=== PATIENT | female | born 1955 | race Caucasian/White ===

== ENCOUNTER 2017-12-27 07:00 | Inpatient (IN) | payer OTHER ==
[~2017-12-27] VITALS: Ht 157.5 cm; Wt 66.2 kg
[2018-01-05] MEDS ORDERED: VITAMIN C500 M8 PO (13:07)
[2018-01-05] MEDS ORDERED: TRAZODONE HCL50 M1 PO (13:11)
--- NOTE | 2018-01-17 11:02 | Operative Report ---
Operative/Inv Procedure Report Surgery Date: 01/17/18 Name of Procedure: #1 left breast reconstruction with dermato cutaneous flap #2 left breast reconstruction with micro-fat grafting #3 right breast reduction #4 left nipple reconstruction Pre-Operative Diagnosis: #1 recurrent left breast cancer #2 late effect radiation with skin and breast changes left breast #3 right breast hypertrophy and asymmetry #4 acquired absence left breast Post-Operative Diagnosis: Same Estimated Blood Loss: less than 50ml Surgeon/Placement Specialist: Terrence Barber M.D. Anesthesia: general endotracheal tube Implants: None Drains: Left breast Adi-Pulido drain, 10 mm Specimens: Right breast tissue Microbiology: None Tourniquet: None Complications: None Condition: Stable Operative Indication: This patient presents with recurrent left breast cancer. She is status post left lumpectomy and radiation in the past. 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 She was diagnosed with recurrent left breast cancer and requires mastectomy. Patient declined reconstruction with flaps ( YAEL, TRAM, latissimus flap), and she declined reconstruction with implants. The patient was going to choose no reconstruction and was offered reconstruction with a left breast Goldilocks mastectomy, with dermatocutaneous cutaneous flap and fat graft reconstruction. In addition she would require right breast reduction for symmetry. Patient was told that due to her prior left breast radiation it was not clear that I would be able to complete her left breast reconstruction utilizing fat grafts. Fat would be harvested from the right hip initially, to preserve the abdomen as a potential donor site for an abdominal flap. Patient understands that she will require between 2-4 outpatient fat graft sessions to complete the rest left breast reconstruction if it will work. We would know after the first outpatient fat graft session in 3 months from now, if this technique will work for her. If not she is prepared to wear an external breast prosthesis for symmetry. He discussed right breast reduction for symmetry as well. Risks discussion with this patient preoperatively included but was not limited to the risk of infection bleeding poor scar formation, contour irregularity, calcification, fibrosis, and fat necrosis, any of which might require additional imaging and her biopsy. Further we discussed breast reduction in detail. Risks discussion regarding the breast reduction included but was not limited to the risk of infection, bleeding, poor scar formation, nipple sensory change or loss, and loss of the nipple. She was allowed us questions or questions were answered she requested we proceed with a left breast Goldilocks mastectomy, with dramatic cutaneous flaps and fat graft, and right breast reduction. Operative/Procedure Note Note: With the patient on the OR table in the supine position under adequate general anesthesia the breasts and abdomen and hips were prepped with chlorhexidine and the breasts were secondarily prepped with Betadine and she was draped in the usual sterile fashion. A 2 team approach was used. While Delma Marin MD was performing the left mastectomy Dr. Barber performed the right breast reduction. Both breasts were marked for a Alvarado pattern breast reduction and Goldilocks mastectomy. The left inferior Alvarado pattern was de-epithelialized sharply with 10 scalpel blade prior to initiating the left mastectomy. Delma Marin MD then completed the left mastectomy area. On the right side, the inferior pedicle width was set at 7 cm, and it was de-epithelialized with 15 scalpel blade. A new areolar diameter was set at 42 mm. The inferior pedicle was dissected free with Bovie cautery. Redundant skin and breast tissue was resected with 10 scalpel blade and Bovie cautery. Specimens were labeled as they were resected. The superior flap was then elevated just superficial to the pectoralis fascia in a superior direction. Dissection continued 2. measuring 5 cm inferior to the clavicle. The superior flap was then thinned uniformly to a thickness measuring 3 cm. Hemostasis was obtained with patient's blood pressure in the normotensive range. The pocket was irrigated with saline solution and hemostasis was obtained with 3-0 Vicryl ties and Bovie cautery was required. A 3-0 Vicryl three-cornered tacking stitch was placed followed by skin clips along the vertical limb and the inframammary incision. A new opening for the areola was marked measuring 4 cm superior to the inframammary fold. This marked the inferior aspect of the new areola. This doughnut of skin and subcutaneous tissue was resected with 15 scalpel blade and Bovie cautery. This was obtained with Bovie cautery. The nipple areolar complex was delivered through this opening, attached to its inferior pedicle, and inset with interrupted deep inverted 4-0 Vicryl subdermal sutures. A running 4-0 Monocryl subcuticular stitch was then placed circumferentially around the areola. The vertical limb was approximated with deep inverted 4-0 Vicryl subdermal sutures and a running 4 Monocryl subcutaneous stitch. The inframammary incision was closed with a running absorbable 4-0 VLOC suture. Finally the inframammary fold was closed with a running 4 Monocryl subcutaneous stitch. A 3 mm right hip incision was then made with 15 scalpel blade. 200 mL of tumescent solution was infused into the right hip. Tumescent solution consisted of 1000 mL of normal saline, mixed with 50 mL of 1% Xylocaine plain, and 1 mL of epinephrine 1:1000. Utilizing a 4 mm tri-port cannula, with suction set at between 18 and 22 inches of mercury, and power set at 65%, fat was harvested from the right hip. A total of 100 mL was harvested from the right hip. The right hip incision was closed with a single deep inverted 4-0 Vicryl subdermal suture, interrupted 5-0 nylon sutures, Steri-Strip 2 x 2 gauze and sterile Band- Aid. The fat was allowed to separate for approximately 10 minutes, and the aqueous layer was drained away. The fat had been collected in a sterile [employer] disposable fat collection system. Once the aqueous layer was drained away fat was transferred into sterile 5 mL syringes. Utilizing a 14-gauge flat- tipped cannula micro fat grafting was performed to the left breasts. Approximately 100 mL total fat was grafted into the left subpectoral, and intrapectoral plane, as well as just deep to the serratus fascia and into the de -epithelialized subcutaneous dermal flap. A total of approximately 10 mL had been placed in the flap the de-epithelialized fat grafted flap was then folded over and sutured to the pectoralis major muscle to increase projection. The mastectomy skin flap was then draped over the dermato cutaneous flap and secured with a single 3-0 Vicryl subdermal three-cornered tacking stitch. The areolar reconstruction was then completed by realigning the areolar border which had been marked preserve approximately a 4 cm diameter areola at the time that I marked for the mastectomy incisions. The areola was reconstructed with deep inverted 4-0 Vicryl subdermal sutures and interrupted 5-0 nylon sutures. Skin clips were placed along the vertical limb and the inframammary incision. A 10 mm Adi-Pulido drain was brought out through the lateral aspect of the inframammary incision and secured with 3-0 nylon suture. This was performed after the wound was irrigated with saline and hemostasis was checked and obtained with Bovie cautery was required. The incisions were then closed in layers. The inframammary incision was closed with a running subdermal 4-0 absorbable V lock suture followed by running 4-0 Monocryl subcutaneous stitch. The vertical limb was closed with deep inverted 4-0 Vicryl sutures followed by running 4 Monocryl subcuticular stitch. The left breast drain was placed to bulb suction. Sterile dressings were applied consisting of Xeroform gauze to the incisions followed by 4 inch Kerlix fluff gauze followed by Kerlix roll fluff gauze followed by 5 x 9 pads and a postsurgical bra and 6 inch Albert wrap. Sponge and needle counts correct end of the case there were no complications.
--- NOTE | 2018-01-17 11:04 | RADIOLOGY REPORT ---
EXAMINATION:\H\ \N\XR CHEST CLINICAL INFORMATION: Miscount COMPARISON: 08/08/2016 TECHNIQUE: Frontal view of the chest was obtained. FINDINGS: The endotracheal tube terminates 3.5 cm above the tenzin. There is a surgical drain overlying the left mid chest. Foci of subcutaneous gas along the left chest wall and right axilla. No pneumothorax. No metallic foreign body. IMPRESSION: No foreign body to indicate a retained suture needle.
--- NOTE | 2018-01-17 11:13 | Operative Report ---
Operative/Inv Procedure Report Surgery Date: 01/17/18 Name of Procedure: Left mastectomy and sentinel lymph node biopsy Pre-Operative Diagnosis: Left breast invasive cancer, status post breast conserving therapy. Post-Operative Diagnosis: Same Estimated Blood Loss: 50ml to 100ml Surgeon/General Merchandise Manager: Delma Marin MD Anesthesia: general endotracheal tube Specimens: Right breast, long suture madrid previous lumpectomy, short suture marked lateral , sentinel lymph node Operative/Procedure Note Note: Patient status post treatment of left breast cancer with lumpectomy and radiation. She presents with a invasive cancer recurrence and presents for mastectomy. Preoperative lymphoscintigraphy performed and the films reviewed. She is brought to the operating room and given clindamycin for prophylaxis. Anesthesia was administered. Bilateral breasts, abdomen and axilla were prepped and draped in sterile fashion. The procedure was done jointly with Dr. Barber. Incisions were planned. The left breast was approached. The posterior flap was de-epithelialized using sharp dissection. Incisions were then made to encompass the nipple and portion of the areola in the mastectomy specimen. Skin flaps are created superiorly to the level of the clavicle, medially to the sternum, and laterally to the latissimus. Inferior skin flap was created to the superior border the rectus sheath. Breast was then removed from the pectoralis fashion. A long silk suture was placed at the prior lumpectomy incision in the medial breast. After the specimen was removed a short suture was placed laterally. The axilla was then explored. A hot lymph node was identified and excised as sentinel lymph node. No other hot, blue, or palpable lymph nodes were identified. It was stasis achieved using electrocautery. The remainder the procedure is dictated by Dr. Barber.
--- NOTE | 2018-01-17 11:23 | Patient Discharge Instructions ---
Discharge Instructions General Discharge Information You were seen/treated for: LEFT BREAST CANCER -MASTECTOMY BILATERAL MASTOPEXY FAT TRANSFER You had these procedures: BREAST RECONSTRUCTION FAT TRANSFER Watch for these problems: WOUND DRAINAGE EXCESSIVE DRAINAGE INTO MICHAEL-YING DRAIN FEVERS OR CHILLS REDNESS AND INCREASING PAIN SATURATED DRESSINGS INCREASING PAIN Call Surgeon to remove: Other, WOUND CHECK Do not soak the wound: No Daily wet to dry dressings: No No bath, but you may shower: No Other wound care: KEEP CLEAN AND DRY EMPTY DRAINS WHEN PARTIALLY FULL Special Instructions: NO HEAVY LIFTING, OVERHEAD ACTIVITIES, NO DRIVING, NO PUSHING OR PULLING Diet Continue normal diet: Yes Activity Full Activity/No Limits: No Acute Coronary Syndrome Inclusion Criteria At DC or during hospital stay patient has or had the following: ACS DIAGNOSIS No Discharge Core Measures Meds if any: Prescribed or Continued at Discharge Meds if any: NOT Prescribed or Continued at Discharge Congestive Heart Failure Inclusion Criteria At DC or during hospital stay patient has or had the following: CHF DIAGNOSIS No Discharge Core Measures Meds if any: Prescribed or Continued at Discharge Meds if any: NOT Prescribed or Continued at Discharge Cerebrovascular accident Inclusion Criteria At DC or during hospital stay patient has or had the following: CVA/TIA Diagnosis No Discharge Core Measures Meds if any: Prescribed or Continued at Discharge Meds if any: NOT Prescribed or Continued at Discharge Venous thromboembolism Inclusion Criteria VTE Diagnosis No VTE Type NONE VTE Confirmed by (Test) NONE Discharge Core Measures - Per Current guidelines, there needs to be overlap - treatment for the first 5 days of Warfarin therapy. - If discharged on Warfarin prior to 5 days of - overlap therapy, the patient will need to be - assessed for post discharge needs including - *Post discharge parental anticoagulation - *Warfarin and/or parental anticoagulation education - *Follow up date to check INR post discharge At least 5 days overlap therapy as Inpatient No Meds if any: Prescribed or Continued at Discharge Note: Overlap Therapy is Warfarin and Anticoagulant Meds if any: NOT Prescribed or Continued at Discharge
--- NOTE | 2018-01-17 11:24 | Admission Core Measures ---
Acute Coronary Syndrome (CM) ACS Core Measures Acute Coronary Syndrome Diagnosis No Congestive Heart Failure (NEW) CHF Core Measures Congestive Heart Failure Diagnosis No Cerebrovascular Accident CVA Core Measures CVA/TIA Diagnosis No Venous Thromboembolism VTE Core Tad (View Protocol) VTE Risk Factors Surgery No Mechanical VTE Prophylaxis d/t N/A MechProphylax Ordered No VTE Pharm Prophylaxis d/t NA PharmProphylax ordered Problem List As ranked by this Provider includes Assessment & Plan 1. Breast cancer HOME MEDS Home Med List Ascorbic Acid (Vitamin C) (Unknown Strength) TABLET (Unknown Dose) PO DAILY SUPPLEMENT (Reported)
--- NOTE | 2018-01-17 11:32 | Surg Short-stay <48hrs Dis Sum ---
Visit Information Visit Dates Admission Date: 01/17/18 Discharge Date: 01/18/18 Surgical Short Stay DC Summary Admission Diagnosis: LEFT BREAST CANCER Final Diagnosis: LEFT BREAST CANCER Procedure(s): LEFT BREAST GOLDI LOCKS MASTECTOMY WITH FAT TRANSFER WITH DRAIN PLACEMENT LEFT SENTINEL NODE BIOPSY RIGHT BREAST REDUCTION Summary/Significant Findings: 62 Y/O FEMALE DIAGNOSED WITH LEFT BREAST CANCER WAS TAKEN TO THE OR ON 01/17/18 FOR LEFT BREAST MASTECTOMY AND RECONSTRUCTION WITH FAT TRANSFER, SENTINEL NODE BIOSPY, AND RIGHT BREAST REDUCTION. SHE TOLARATED THE PROCEDURE WELL AND WAS DISCHARGED TO THE FLOOR WITHOUT COMPLICATION. On pod1 her dressing was changed by Dr Barber and Dr Marin. Her JAY drain was checked and output was recorded. THROUGHOUT HER HOSPITAL STAY HER VSS AND SHE WAS AFEBRILE. PAIN WAS CONTROLLED AND SHE TOLARATED POs AND VOIDED. SHE IS DISCHARGED IN STABLE CONDITION TO HOME WITH ALL DISCHARGE INSTRUCTIONS AND FOLLOW-UP APPOINTMENTS EXPLAINS Condition at Discharge: STABLE Discharge Disposition: home or self care Discharge instructions provided to patient/family: Yes Post discharge follow-up plan: STABLE Copies to: Tomas HUFF,Brittany Barber MD,Terrence Fowler
[2018-01-17 13:04] VITALS: BP 118/70
--- NOTE | 2018-01-17 15:22 | PN- General Surgery ---
Subjective Subjective: POST-OP NOTE Currently nauseous. Tolerating sips of gingerale. "I feel like I need to burp". Currently pain controlled. Out of bed to bathroom. Unable to void yet. No shortness of breath. No chest pains. Some dizziness when out of bed. Interested in talking to clinical case manager about VNA services. Her prescriptions were filled pre -operatively. Objective Vital Signs and I&Os Vital Signs Date Time Temp Pulse Resp B/P B/P Pulse O2 O2 Flow FiO2 Mean Ox Delivery Rate 01/17 1304 58 18 118/70 94 Room Air Intake & Output 01/17 1600 01/17 0800 01/17 0000 01/16 1600 01/16 0800 01/16 0000 Intake Total Output Total Balance Patient 146 lb Weight Weight Bed scale Measurement Method Physical Exam: General - alert & oriented x 3. comfortable. no acute distress. Lungs - clear bilaterally. no w/r/r. Cardiac - s1s2. reg. Chest - dressings c/d/i. left sided JAY drain with scant bloody drainage, to bulb suction. Abdomen - soft. nontender. Extremities - warm bilaterally. no c/c/e. calves soft and nontender b/l. athrombics placed. Current Medications: Current Medications Sig/Jassi Start time Last Medication Dose Route Stop Time Status Admin Acetaminophen 1,000 MG Q6H PRN 01/17 1100 AC N/A 1 UNIT IV Cefazolin Sodium 2,000 MG ONCE 01/17 0000 NR IV 01/17 2359 Clindamycin 300 MG IQ8 01/17 1600 UNVr Dextrose/Water 50 ML IV 01/18 1559 Dexmedetomidine HCl 200 MCG .STK-MED ONE 01/17 0716 DC IV 01/17 0717 Dextrose/Sodium 1,000 ML Q10H 01/17 1100 AC 01/17 Chloride IV 1254 Diphenhydramine HCl 25 MG Q4-6 PRN PRN 01/17 1515 AC IV Docusate Sodium 100 MG DAILY 01/18 0900 AC PO Fentanyl Citrate 200 MCG .STK-MED ONE 01/17 0715 DC IM 01/17 0716 Hydromorphone HCl 2 MG Q4P PRN 01/17 1115 AC PO Hydromorphone HCl 4 MG Q4P PRN 01/17 1115 AC PO Hydromorphone HCl 2 MG .STK-MED ONE 01/17 0715 DC IM 01/17 0716 Ketamine HCl 50 MG .STK-MED ONE 01/17 0715 DC IM 01/17 0716 Midazolam HCl 2 MG .STK-MED ONE 01/17 0716 DC IM 01/17 0717 Morphine Sulfate 10 MG Q3P PRN 01/17 1115 CAN IV Ondansetron HCl 4 MG Q6P PRN 01/17 1100 AC 01/17 IV 1259 Oxycodone HCl 5 MG Q6 PRN 01/17 1115 CAN PO Oxycodone HCl 10 MG Q6 PRN 01/17 1115 CAN PO Oxycodone/ 1 TAB Q4P PRN 01/17 1100 CAN Acetaminophen PO Oxycodone/ 2 TAB Q4P PRN 01/17 1100 CAN Acetaminophen PO Trimethobenzamide HCl 200 MG TID PRN 01/17 1530 AC IM Assessment/Plan Assessment/Plan This 62 year old female is POD#0 s/p left mastectomy and sentinel lymph node biopsy, left breast reconstruction with dermato cutaneous flap and micro-fat grafting with nipple reconstruction, and right breast reduction, for recurrent left breast cancer, late effect radiation with skin and breast changes left breast, right breast hypertrophy and asymmetry, and acquired absence left breast advance diet as tolerated pain control as ordered IST reviewed ALPS / oob - dvt ppx due to void by tonight clindamycin, to transition to oral antibiotics upon discharge to home monitor JAY drain. drain teaching and clinical case manager to assess ?need for VNA d/c home tomorrow will d/w and Core Measures Venous Thromboembolism VTE Risk Factors Surgery No Mechanical VTE Prophylaxis d/t N/A MechProphylax Ordered No VTE Pharm Prophylaxis d/t NA PharmProphylax ordered
[2018-01-17] MEDS ORDERED: VICODIN 5-3001 EACH PO (15:29)
[2018-01-17] MEDS ORDERED: ZOFRAN4 M2 PO (15:29)
[2018-01-17] MEDS ORDERED: CLINDAMYCIN HC300 M1 PO (15:29)
[2018-01-17] MEDS ORDERED: COLACE100 M1 PO (15:30)
[2018-01-17 19:50] VITALS: BP 100/62
[2018-01-18] VITALS: BP 100/50
[2018-01-18 06:19] VITALS: BP 91/55
--- NOTE | 2018-01-18 07:51 | PN- General Surgery ---
Subjective Subjective: Had some nausea overnight. Feels better this morning. No pain Objective Vital Signs and I&Os Vital Signs Date Time Temp Pulse Resp B/P B/P Pulse O2 O2 Flow FiO2 Mean Ox Delivery Rate 01/18 0619 97.8 66 20 91/55 100 Room Air 01/18 0000 98.2 60 18 100/50 99 Room Air 01/17 1950 97.8 52 20 100/62 98 01/17 1304 58 18 118/70 94 Room Air Intake & Output 01/18 0801/18 0000 01/17 1600 01/17 0800 01/17 0000 01/16 1600 Intake Total 1140 420 Output Total 1335 300 Balance -195 120 Intake, IV 900 300 Intake, Oral 240 120 Number 0 0 Bowel Movements Output, 35 Drainage Output, Urine 1300 300 Patient 146 lb Weight Weight Bed scale Measurement Method Assessment/Plan Assessment/Plan Patient is doing well after left mastectomy, reconstruction, sentinel node biopsy and right reduction mamoplasty. Dressing changed with Dr. Barber. Wound care instructions given. Dry sterile dressings once daily starting Saturday. Will continue Clindamycin 300mg bid for 7 days. PO pain control, regular diet, ambulate as tolerated. Core Measures Venous Thromboembolism VTE Risk Factors Surgery No Mechanical VTE Prophylaxis d/t N/A MechProphylax Ordered No VTE Pharm Prophylaxis d/t NA PharmProphylax ordered
== END 2018-01-18 10:59 | DRG 581 ==
LOC: SDA 01-17 00:56 → ENRESERV 01-17 11:18 → ENTRNSPT 01-17 12:05 → EDTRNSPTSTS 01-17 12:15 → EDTRNSPT 01-17 12:15 → 2NB 01-17 12:25 → CMPTRNSPT 01-17 12:29 → ENPENDDIS 01-18 08:32 → ENTRNSPT 01-18 10:43 → 2NB 01-18 10:59 → EDTRNSPTSTS 01-18 11:00 → EDTRNSPT 01-18 11:00 → CMPTRNSPT 01-18 11:02
PROC: 0HTU0ZZ Resection of Left Breast, Open Approach (ICD-10-PCS; principal; 2018-01-17)
PROC: 07B60ZX Excision of Left Axillary Lymphatic, Open Approach, Diagnostic (ICD-10-PCS; principal; 2018-01-17)
PROC: 0HU Skin and Breast, Supplement (ICD-10-PCS; 2018-01-17)
PROC: 0HRU37Z Replacement of Left Breast with Autologous Tissue Substitute, Percutaneous Approach (ICD-10-PCS; 2018-01-17)
PROC: 0HBT0ZZ Excision of Right Breast, Open Approach (ICD-10-PCS; 2018-01-17)
PROC: 0JDL3ZZ Extraction of Right Upper Leg Subcutaneous Tissue and Fascia, Percutaneous Approach (ICD-10-PCS; 2018-01-17)
PROC: 3E0T3BZ Introduction of Anesthetic Agent into Peripheral Nerves and Plexi, Percutaneous Approach (ICD-10-PCS; 2018-01-17)
DX: C50.912 Malignant neoplasm of unspecified site of left female breast (principal)
CPT/HCPCS: 2NBP; 71045; J0131; J0690; J1200; J3250; J3490; J7042